=== PATIENT | male | born 1970 | race Caucasian/White ===

== ENCOUNTER 2021-07-14 07:19 | Emergency (ER) | payer MEDICAID ==
[~2021-07-14] VITALS: Ht 172.7 cm; Wt 70.4 kg
[2021-07-14] MEDS ORDERED: SODIUM CHLORIDE FLUSH 10ML SYR IVF ONE (08:30)
[2021-07-14] MEDS ORDERED: ONDANSETRON 2MG/ML, 2ML IVPush ONE (08:30)
[2021-07-14] MEDS ORDERED: ASPIRIN 81 MG TABLET CHEW PO ONE (08:30)
[2021-07-14] MEDS ORDERED: ASPIRIN 81 MG TABLET CHEW ONE (08:41)
[2021-07-14] MEDS ORDERED: ONDANSETRON 2MG/ML, 2ML ONE (08:41)
[2021-07-14 08:48] LABS: BASOPHILS % (AUTO) 1 % (0-1); EOSINOPHILS % (AUTO) 3 % (1-7); LYMPHOCYTES % (AUTO) 16 % (22-44); MEAN CORPUSCULAR HEMOGLOBIN 32.3 pg (27.5-34.5); MEAN CORPUSCULAR HGB CONC 34.2 g/dL (33.2-36.2); MEAN PLATELET VOLUME 7.5 fL (7.4-10.4); MONOCYTES % (AUTO) 5 % (2-9); NEUTROPHILS % (AUTO) 76 % (42-75); PLATELET COUNT 280 x10^3/uL (130-400); RED BLOOD COUNT 4.77 x10^6/uL (4.38-5.82); RED CELL DISTRIBUTION WIDTH 13.6 % (9.4-14.8)
[2021-07-14 08:59] LABS: ALANINE AMINOTRANSFERASE 28 U/L (12-78); ALBUMIN 3.7 g/dL (3.4-5.0); ANION GAP 7 mmol/L (5-15); CHLORIDE 104 mmol/L (98-107)
[2021-07-14 09:03] LABS: ALKALINE PHOSPHATASE 113 U/L (45-117); BILIRUBIN,TOTAL 0.3 mg/dL (0.2-1.0); TOTAL PROTEIN 7.7 g/dL (6.4-8.2); TROPONIN I < 0.015 ng/mL (0.000-0.045)
--- NOTE | 2021-07-14 09:24 | NUR ---
ALL TESTS RESULTED. PT IS UP FOR RECHECK AT THIS TIME.
[2021-07-14 11:23] VITALS: BP 150/89
== END 2021-07-14 12:02 | disposition home or self-care (01) ==
LOC: ED 09:12
DX: R11.2 Nausea with vomiting, unspecified (principal); R07.89 Other chest pain
CPT/HCPCS: 36415; 71045; 80053; 83605; 84484; 85025; 93005; 96374; 99285; J2405